=== PATIENT | male | born 1975 | race Caucasian/White ===

== ENCOUNTER → 2019-09-06 | Outpatient (CLI) | payer BC ==
[2019-09-06 08:16] LABS: African American GFR (CKD) >90 (>60 ml/min/1.73 sqM); Blood Urea Nitrogen 14 mg/dL (9-20); Non-African American GFR(CKD) >90 (>60 ml/min/1.73 sqM)
--- NOTE | 2019-09-06 09:50 | CT ---
EXAMINATION TYPE: CT abdomen pelvis wo/w con DATE OF EXAM: 09/06/2019 COMPARISON: 10/28/2009 CT abdomen HISTORY: 44-year-old male GERD, Umbilical hernia TECHNIQUE: Contiguous axial scanning of the abdomen and pelvis before and after administration of 100 ml Isovue 300 IV contrast. Delayed images through the kidneys and coronal/sagittal reconstructions performed. CT DLP: 2775 mGycm Automated exposure control for dose reduction was used. FINDINGS: Heart normal size without pericardial effusion. Lung bases clear without pleural effusion. Liver enlarged at 21.8 cm with low attenuation compatible with fatty infiltration. Focal fatty sparin g along the gallbladder fossa. Otherwise, no focal liver lesion or biliary ductal dilatation. Portal venous system is patent. Gallbladder, adrenal glands, left kidney, and pancreas appear within normal limits. Spleen enlarged at 16.4 cm measured on axial series with hilar splenule. Punctate 3 mm nonobstructive right renal calculus. No hydronephrosis on either side. No dilated small bowel, free fluid, or free air. No sizable hiatal hernia is seen. Numerous nonenlarged and borderline to mildly enlarged mesenteric lymph nodes measuring up to 1.1 cm are unchanged from 2009 compatible with a chronic postinflammatory etiology. Oral contrast progressed to the mid transverse colon. Mild stool within the right hemicolon. No peric olonic inflammatory change. Patulous right inguinal canal. Bladder partially distended. Prostate gland measures 4.8 cm wide with central calcification. Multiple pelvic phlebolith. Bones: No osseous destructive process. IMPRESSION: 1. HEPATOSPLENOMEGALY (LIVER 21.8 CM AND SPLEEN 16.4 CM) WITH HEPATIC STEATOSIS. 2. PUNCTATE NONOBSTRUCTIVE 3 MM RIGHT RENAL CALCULUS. 3. NUMEROUS NONENLARGED AND BORDERLINE AND MILDLY ENLARGED MESENTERIC LYMPH NODES MEASURING UP TO 1.1 CM. THESE ARE UNCHANGED FROM 2009, A CHRONIC BENIGN, POSTINFLAMMATORY ETIOLOGY IS SUGGESTED. 4. NO SIZABLE HIATAL HERNIA SEEN.
== END | disposition home or self-care (01) ==
LOC: RADCTMAIN 07:37
PROVIDERS: ATTEND Family Medicine
DX: K76.0 Fatty (change of) liver, not elsewhere classified (principal); R16.2 Hepatomegaly with splenomegaly, not elsewhere classified; N20.0 Calculus of kidney; R59.0 Localized enlarged lymph nodes; K21.9 Gastro-esophageal reflux disease without esophagitis
CPT/HCPCS: 82565; 84520; 74178; 36415; Q9967

== ENCOUNTER → 2020-03-03 | Day surgery (SDC) | payer BC ==
[2020-02-27 15:09] VITALS: BMI 29.9
[~2020-03-03] MED LIST: BUPIVACAIN-EPI 0.25%-1:200,000 30 ML VIAL SQ ONE; DEXAMETHASONE SOD PHOSPHATE 10 MG/ML 1 ML VIAL IV ONE; DEXAMETHASONE SOD PHOSPHATE 4 MG/ML 1 ML VIAL ONE; GLYCOPYRROLATE 0.2 MG/ML 2 ML VIAL ONE; HEPARIN SODIUM,PORCINE 5,000 UNIT/ML 1 ML VIAL ONE; HEPARIN SODIUM,PORCINE 5,000 UNIT/ML 1 ML VIAL SQ ONE; HYDROcodone/APAP 5-325MG 1 EACH TAB PO PRN; HYDROmorphone 0.5 MG/0.5 ML SYRINGE IVP PRN; KETOROLAC 30 MG/ML 1 ML VIAL ONE; LACTATED RINGERS 1,000 ML IV ONE; LACTATED RINGERS 1,000 ML IV SCH; LIDOCAINE 1% INJ 10MG/ML (20 ML MDV) ONE; MIDAZOLAM 2 MG/2 ML VIAL IV PRN; MIDAZOLAM 2 MG/2 ML VIAL IVP ONE; MIDAZOLAM 2 MG/2 ML VIAL ONE; NALOXONE 0.4 MG/ML 1 ML VIAL IV PRN; NEOSTIGMINE 1 MG/ML 10 ML VIAL ONE; ONDANSETRON 4 MG/2 ML VIAL IVP ONE; ONDANSETRON 4 MG/2 ML VIAL ONE; PROPOFOL 10 MG/ML 20 ML VIAL IV ONE; ROCURONIUM BROMIDE 10 MG/ML 5 ML VIAL IV ONE; ROPIVACAINE 5 MG/ML 30 ML VIAL ONE; SCOPOLAMINE 1.5MG/72HR PATCH TRANSDERM ONE; SUCCINYLCHOLINE CHLORIDE 100 MG/5 ML SYR IV ONE; fentaNYL (PF) 50 MCG/ML 2 ML AMP IVP ONE; fentaNYL (PF) 50 MCG/ML 2 ML AMP ONE
--- NOTE | 2020-03-03 09:33 | P.GSHP ---
History of Present Illness H&P Date: 03/03/20 Chief Complaint: Bilateral inguinal hernia, umbilical hernia 44-year-old male seen in the office in October. Had been previously seen for bilateral inguinal hernia in the past. Patient lost some weight and was having more symptoms on the right-hand side. No change in bowel habits. No history of previous hernia repair. Past Medical History Past Medical History: Diabetes Mellitus, Hyperlipidemia, Hypertension Additional Past Medical History / Comment(s): inguinal and umbilical hernia. diet controlled diabetes History of Any Multi-Drug Resistant Organisms: None Reported Additional Past Surgical History / Comment(s): skin grafting d/t burnett Past Anesthesia/Blood Transfusion Reactions: Motion Sickness Smoking Status: Never smoker - Past Family History Mother Family Medical History: No Reported History Medications and Allergies Home Medications Medication Instructions Recorded Confirmed Type Dextroamphetamine/Amphetamine 30 mg PO BID 02/29/20 02/29/20 History [Adderall] Esomeprazole Magnesium [NexIUM] 40 mg PO DAILY 02/29/20 02/29/20 History Levothyroxine Sodium [Synthroid] 25 mcg PO DAILY 02/29/20 02/29/20 History Losartan Potassium [Cozaar] 100 mg PO DAILY 02/29/20 02/29/20 History Simvastatin 40 mg PO DAILY 02/29/20 02/29/20 History Allergies Allergy/AdvReac Type Severity Reaction Status Date / Time No Known Allergies Allergy Verified 02/27/20 15:02 Surgical - Exam Physical exam: General: Well-developed, well-nourished HEENT: Normocephalic, sclerae nonicteric Abdomen: Nontender, nondistended tiny reducible umbilical hernia, bilateral reducible inguinal hernias Extremities: No edema Neuro: Alert and oriented Assessment and Plan (1) Bilateral inguinal hernia Narrative/Plan: 44-year-old male with bilateral inguinal hernia and small reducible umbilical hernia. We'll proceed with laparoscopic repair bilateral inguinal hernia with mesh using da Donn assistance, possible open. We'll repair the umbilical hernia while utilizing the fascial defect as a trocar site as well. Likely without mesh at the umbilicus. Risks of bleeding, infection, recurrence, bladder and bowel injury, numbness, nerve injury, conversion to an open procedure were discussed with the patient. The patient understands and wishes to proceed. Status: Acute Code(s): K40.20 - BI INGUINAL HERNIA, W/O OBST OR GANGRENE, NOT SPCF RECUR SNOMED Code(s): 76380177
[2020-03-03 10:17] VITALS: RESP 16
[2020-03-03 10:36] LABS: Glucose,Whole Blood 108 mg/dL (75-99)
[2020-03-03 10:48] LABS: HCT 45.3 % (39.0-53.0); HGB 15.4 gm/dL (13.0-17.5); MCH 29.5 pg (25.0-35.0); MCV 86.8 fL (80.0-100.0); Mean Platelet Volume 7.1; Platelet Count 217 k/uL (150-450); RBC 5.22 m/uL (4.30-5.90); RDW 12.7 % (11.5-15.5); WBC 8.1 k/uL (3.8-10.6)
[2020-03-03 15:11] VITALS: TEMP 96.9
--- NOTE | 2020-03-03 15:17 | P.OP ---
Date of Procedure: 03/03/20 Procedure(s) Performed: PREOPERATIVE DIAGNOSIS: Bilateral inguinal hernia, reducible umbilical hernia POSTOPERATIVE DIAGNOSIS: Same PROCEDURE: Laparoscopic repair bilateral inguinal hernia with the da Donn robot assistance with mesh SURGEON: Billy EBL: Minimal ANESTHESIA: General COMPLICATIONS: None OPERATIVE PROCEDURE: Patient was placed in the operating table in the supine position. The patient was placed under general anesthesia. The patient was then placed in lithotomy. The abdomen was prepped and draped in usual sterile fashion. A small curvilinear supraumbilical incision was made. The patient's hernia sac was dissected down to the level of the fascia. The umbilicus was freed up. A portion of the hernia sac was excised. The preperitoneal fat was reduced back into the preperitoneal space. The fascia was then retracted anteriorly with Black forceps. The Veress needle was inserted. The saline drop test was normal. Insufflation took place to 15 mmHg. An 8 mm trocar was then inserted. 2 additional 8 mm trochars were placed in the right upper quadrant and left upper quadrant under visualization. The robotic arms were then brought in and docked into place. The fenestrated bipolar was used in the left arm and the laparoscopic tj was utilized in the right arm. A 30 8 mm scope was used in the up position. The peritoneal cavity was inspected. The patient had evidence of small moderate-sized left inguinal hernia. The peritoneum on the right side appeared fairly normal. The patient's complaints were primarily right sided at his office visit and a small hernia was palpated. For that reason the right side was dissected as well. The right sided peritoneum was inc ised in a horizontal fashion cephalad to the internal inguinal ring. Following that careful dissection of the preperitoneal space took place. This took place using both electrocautery, sharp dissection but primarily blunt dissection. Visualization of the pubic tubercle and Roosevelt's ligament took place medially. Full dissection took place laterally as well. The patient appeared to have a small indirect hernia at that location. No definite direct or femoral hernia was identified on the right-hand side. The left side was then addressed. On this side the patient had a small moderate-sized indirect sac. As we were dissecting the preperitoneal space however a femoral hernia was also identified and reduced. The space was fully dissected to allow for placement of the mesh. The 15 x 10 mm Prograf mesh was again utilized and flattened out appropriately bilaterally. The mesh overlapped nicely in the midline anterior to the bladder. The defect bilaterally was closed using a running 20V lock suture. 2 small defects in the peritoneum on the right and one on the left were closed using short running 3-0 Vicryl sutures. The sutures were then removed. The pneumoperitoneum was then evacuated. The fascia at the umbilicus was reapproximated using 2 separate [id number] 0 Ethibond sutures. The skin of all 3 sites was closed using a 4-0 Monocryl stitch. Skin glue and sterile jay ssings were applied. DISPOSITION: Stable to recovery room
[2020-03-03 16:21] VITALS: BP 111/62; PULSE 102
== END ==
LOC: OR 09:55
PROVIDERS: ATTEND Surgery
DX: K40.20 Bilateral inguinal hernia, without obstruction or gangrene, not specified as recurrent (principal); K42.9 Umbilical hernia without obstruction or gangrene; I10 Essential (primary) hypertension; K21.9 Gastro-esophageal reflux disease without esophagitis; E11.9 Type 2 diabetes mellitus without complications; E07.9 Disorder of thyroid, unspecified; E78.5 Hyperlipidemia, unspecified; Z79.890 Hormone replacement therapy; Z79.899 Other long term (current) drug therapy
CPT/HCPCS: 64488; 85027; 49585; 49650; C1781; J2250; J1644; J1100 ×2; J2710; J0690; J2405; J2001; J3010; J1885; J2795; J0330; J2704

== ENCOUNTER → 2020-07-11 | Outpatient (CLI) | payer BC | END | disposition home or self-care (01) | LOC: LABWHC1 13:57 | PROVIDERS: ATTEND Family Medicine | DX: Z03.818 Encounter for observation for suspected exposure to other biological agents ruled out (principal); Z20.828 Contact with and (suspected) exposure to other viral communicable diseases | CPT/HCPCS: U0003; C9803 ==

== ENCOUNTER 2021-05-06 08:29 | Emergency (ER) | payer BC ==
[2021-05-06 08:34] VITALS: BP 149/100; PULSE 101; RESP 18; TEMP 97.8
[2021-05-06] MEDS ORDERED: FLUORESCEIN STRIPS 1 MG STRIP RIGHT EYE ONE (08:37)
[2021-05-06] MEDS ORDERED: PROPARACAINE 0.5% OPHTH DROPS 15 ML BTL LEFT EYE STA (08:37)
[2021-05-06] MEDS ORDERED: TOBRAMYCIN 0.3% OPHTH DROPS 5 ML BTL RIGHT EYE STA (08:53)
--- NOTE | 2021-05-06 08:54 | ED ---
Eye Problem HPI - General Chief complaint: Eye Problems Stated complaint: possible FB in eye Time Seen by Provider: 05/06/21 08:37 Source: patient, RN notes reviewed Mode of arrival: ambulatory Limitations: no limitations - History of Present Illness Initial comments: 45-year-old male present emergency partner with chief complaint right eye irritation. Patient states he feels like something is in his right eye, noted some redness. Patient states this feels dry and scratchy. Patient denies any blurred vision no trauma no contacts no other complaints. - Related Data Home Medications Medication Instructions Recorded Confirmed Dextroamphetamine/Amphetamine 30 mg PO BID 02/29/20 02/29/20 [Adderall] Esomeprazole Magnesium [NexIUM] 40 mg PO DAILY 02/29/20 02/29/20 Levothyroxine Sodium [Synthroid] 25 mcg PO DAILY 02/29/20 02/29/20 Losartan Potassium [Cozaar] 100 mg PO DAILY 02/29/20 02/29/20 Simvastatin 40 mg PO DAILY 02/29/20 02/29/20 Previous Rx's Medication Instructions Recorded oxyCODONE HCL [OxyIR] 5 mg PO Q6H PRN 3 Days #6 tab 03/03/20 Allergies Allergy/AdvReac Type Severity Reaction Status Date / Time No Known Allergies Allergy Verified 05/06/21 08:30 Review of Systems ROS Statement: Those systems with pertinent positive or pertinent negative responses have been documented in the HPI. ROS Other: All systems not noted in ROS Statement are negative. Past Medical History Past Medical History: Diabetes Mellitus, Hyperlipidemia, Hypertension Additional Past Medical History / Comment(s): inguinal and umbilical hernia. diet controlled diabetes History of Any Multi-Drug Resistant Organisms: None Reported Additional Past Surgical History / Comment(s): skin grafting d/t burnett Past Anesthesia/Blood Transfusion Reactions: Motion Sickness Past Psychological History: No Psychological Hx Reported Smoking Status: Never smoker Past Alcohol Use History: None Reported Past Drug Use History: None Reported - Past Family History Mother Family Medical History: No Reported History General Exam Limitations: no limitations General appearance: alert, in no apparent distress Head exam: Present: atraumatic, normocephalic, normal inspection Eye exam: Present: PERRL, EOMI, conjunctival injection (Moderate right), other (No hyphema). Absent: normal appearance, scleral icterus, periorbital swelling Pupils: Present: other (Patient did have some relief of symptoms with proparacaine drops, no fluorescein uptake noted, intraocular pressure right 16, left 17) ENT exam: Present: normal exam, mucous membranes moist Neck exam: Present: normal inspection, full ROM. Absent: tenderness, meningismus, lymphadenopathy Respiratory exam: Present: normal lung sounds bilaterally. Absent: respiratory distress, wheezes, rales, rhonchi, stridor Cardiovascular Exam: Present: regular rate, normal rhythm, normal heart sounds. Absent: systolic murmur, diastolic murmur, rubs, gallop, clicks Course Vital Signs 05/06/21 08:30 Temperature 97.8 F Pulse Rate 101 H Respiratory 18 Rate Blood Pressure 149/100 O2 Sat by Pulse 98 Oximetry Medical Decision Making - Medical Decision Making Patient appears to have some conjunctivitis without evidence of foreign body or increased intraocular pressures visual acuity is unremarkable patient was transverse eyedrops will follow-up with ophthalmology return parameters discussed. Disposition Clinical Impression: Conjunctivitis Disposition: HOME SELF-CARE Condition: Stable Instructions (If sedation given, give patient instructions): Conjunctivitis (ED) Additional Instructions: Please return to the Emergency Department if symptoms worsen or any other concerns. Is patient prescribed a controlled substance at d/c from ED?: No Referrals: Eric Kenney DO [Primary Care Provider] - 1-2 days Kyara Martino MD [STAFF PHYSICIAN] - 1-2 days Time of Disposition: 08:54
== END 2021-05-06 09:01 | disposition home or self-care (01) ==
LOC: EC 08:29
DX: H10.9 Unspecified conjunctivitis (principal); I10 Essential (primary) hypertension; E11.9 Type 2 diabetes mellitus without complications; E78.5 Hyperlipidemia, unspecified; Z79.899 Other long term (current) drug therapy
CPT/HCPCS: 99283

== ENCOUNTER → 2021-08-27 | Outpatient (CLI) | payer BC | END | disposition home or self-care (01) | LOC: LABWHC1 11:36 | PROVIDERS: ATTEND Family Medicine | DX: Z03.818 Encounter for observation for suspected exposure to other biological agents ruled out (principal) | CPT/HCPCS: U0003; C9803 ==

== ENCOUNTER → 2024-12-06 | Outpatient (CLI) | payer BC ==
--- NOTE | 2024-12-06 19:55 | CT ---
EXAMINATION TYPE: CT abdomen pelvis w con CT DLP: 1523.2 mGycm, Automated exposure control for dose reduction was used. DATE OF EXAM: 12/06/2024 5:53 PM COMPARISON: CT abdomen pelvis 09/06/2019 CLINICAL INDICATION:Male, 49 years old with history of K57.32 DVTRCLI R10.32 LLQ PAIN; LLQ pain. Hx o f hernia repair. TECHNIQUE: Standard CT of the abdomen and pelvis following the administration of 100 cc of Isovue 3 00 IV contrast material and oral contrast. Coronal and sagittal reformats were performed. FINDINGS: LOWER CHEST: Unremarkable ABDOMEN LIVER: Diffusely hypoattenuating parenchyma. Mildly enlarged measuring 20.7 cm in CC dimension. No fo perico lesion. GALLBLADDER AND BILE DUCTS: Contracted gallbladder. No biliary ductal dilatation. PANCREAS: Unremarkable. SPLEEN: Mildly enlarged measuring 15.1 cm in AP dimension. ADRENAL GLANDS: Unremarkable. KIDNEYS AND URETERS: No evidence of hydronephrosis. Nonobstructive bilateral 2 mm renal calculi. The kidneys enhance symmetrically. Contrast is demonstrated within both collecting systems and proximal u reters on the delayed phase. PELVIS BLADDER: Incompletely distended but grossly unremarkable. REPRODUCTIVE: Coarse calcifications of the prostate gland are identified. ABDOMEN & PELVIS STOMACH AND BOWEL: Stomach and duodenum are unremarkable. Mild amount of stool is present throughout the colon. No focal bowel wall thickening or surrounding inflammatory changes. The appendix is within normal limits. Enteric contrast reaches the ileocecal junction. No evidence of bowel obstruction. No significant diverticulosis. PERITONEUM: No evidence of pneumoperitoneum or free fluid. Postsurgical changes from hernia repair wi th mesh. VASCULATURE: No evidence of aortic aneurysm. Few pelvic phleboliths. MUSCULOSKELETAL: No acute osseous abnormalities. Prominent Schmorl's node involving the superior endp late of the L1 vertebral body. LYMPH NODES: No evidence for lymphadenopathy. SOFT TISSUE/ABDOMINAL WALL: Postsurgical changes from hernia repair with mesh. Patulous fat filled bi lateral inguinal rings with right greater than left. IMPRESSION: 1. No acute abdominal/pelvic process. 2. Nonobstructive bilateral renal calculi. 3. Mild hepatomegaly with steatosis redemonstrated. 4. Mild splenomegaly redemonstrated. 5. Postsurgical changes from hernia repair without evidence of recurrence. [facility], , 12/06/2024 7:53 PM
== END | disposition home or self-care (01) ==
LOC: RADCTMAIN 15:30
PROVIDERS: ATTEND Surgery
DX: K57.32 Diverticulitis of large intestine without perforation or abscess without bleeding (principal); N20.0 Calculus of kidney; R16.2 Hepatomegaly with splenomegaly, not elsewhere classified; Z98.890 Other specified postprocedural states
CPT/HCPCS: 74177; Q9967